=== PATIENT | male | born 2000 | race African-American/Black ===

== ENCOUNTER 2022-05-08 23:45 | Emergency (ER) | payer MEDICAID ==
[~2022-05-08] VITALS: Ht 193 cm; Wt 145.0 kg
[2022-05-09] MEDS ORDERED: IBUPROFEN 800MG TABLET PO ONE (04:15)
[2022-05-09] MEDS ORDERED: IBUPROFEN 800MG TABLET PO NR (04:30)
[2022-05-09] MEDS ORDERED: IBUP-2030 MT (05:04)
[2022-05-09 05:49] VITALS: BP 117/80
== END 2022-05-09 05:50 | disposition home or self-care (01) ==
LOC: ER 23:45
DX: S90.32XA Contusion of left foot, initial encounter (principal); W01.0XXA Fall on same level from slipping, tripping and stumbling without subsequent striking against object, initial encounter; Y93.89 Activity, other specified; Y92.832 Beach as the place of occurrence of the external cause
CPT/HCPCS: 29515; 73610; 73630; 99284